=== PATIENT | male | born 1935 | race African-American/Black ===

== ENCOUNTER 2020-10-05 22:43 | Emergency (ER) | payer OTHER ==
[~2020-10-05] VITALS: Ht 172.7 cm; Wt 93.0 kg
[~2020-10-05 22:43] MED LIST: ANTIVERT25 MG PO
[2020-10-05 23:42] LABS: ABSOLUTE NEUTROPHILS 6.1 thou/uL (1.4-8.2); BASOPHILS 0.7 % (0.0-2.0); EOSINOPHILS 0.6 % (0.0-3.0); HEMATOCRIT 43.3 % (42.0-52.0); LYMPHOCYTES 19.6 % (24.0-44.0); MCH 27.7 pg (26.0-34.0); MCHC 32.3 g/dL (28.0-37.0); MCV 85.9 fL (80.0-100.0); MONOCYTES 9.7 % (1.0-8.0); PLATELET COUNT 226 thou/uL (150-400); POLYS 69.4 % (36.0-66.0); RBC 5.04 mil/uL (4.50-6.00); WBC 8.8 thou/uL (4.0-11.0)
[2020-10-05 23:44] LABS: CALCIUM 9.3 mg/dL (8.5-10.1); CREATININE 1.4 mg/dL (0.7-1.3); POTASSIUM 4.5 mmol/L (3.5-5.1)
[2020-10-06] MEDS ORDERED: PREPARATION H TOP (02:41)
[2020-10-06] MEDS ORDERED: MIRALAX119 GM PO (02:41)
[2020-10-06 02:45] VITALS: BP 130/78
== END 2020-10-06 02:47 | disposition home or self-care (01) ==
LOC: ER 22:43
PROVIDERS: Student in an Organized Health Care Education/Training Program
DX: K64.4 Residual hemorrhoidal skin tags (principal); E11.9 Type 2 diabetes mellitus without complications; I10 Essential (primary) hypertension; E78.5 Hyperlipidemia, unspecified

== ENCOUNTER 2020-12-13 04:49 | Emergency (ER) | payer OTHER ==
[~2020-12-13] VITALS: Ht 175.3 cm; Wt 89.4 kg
[~2020-12-13 04:49] MED LIST changes: +MIRALAX119 GM PO; +PREPARATION H TOP
[2020-12-13] MEDS ORDERED: TESSALON PERLE100 MG PO (05:38)
[2020-12-13] MEDS ORDERED: TUSSIN CHE100 MG/5 M PO (06:02)
[2020-12-13 06:08] VITALS: BP 162/94
== END 2020-12-13 06:11 | disposition home or self-care (01) ==
LOC: ER 04:49
PROVIDERS: Emergency Medicine
DX: J06.9 Acute upper respiratory infection, unspecified (principal); Z20.822 Contact with and (suspected) exposure to COVID-19; E11.9 Type 2 diabetes mellitus without complications; I10 Essential (primary) hypertension; E78.5 Hyperlipidemia, unspecified